=== PATIENT | male | born 1975 | race Caucasian/White ===

== ENCOUNTER → 2017-03-30 | Outpatient (CLI) | payer MEDICARE, OTHER | LOC: RAD 07:50 | DX: S50.01XA Contusion of right elbow, initial encounter (principal) | CPT/HCPCS: 73070 ==

== ENCOUNTER 2017-07-12 13:39 | Emergency (ER) | payer MEDICARE, OTHER ==
[2017-07-12 15:32] LABS: HEMOGLOBIN 14.2 gm/dl (14.0-17.5); RED BLOOD COUNT 4.49 M/UL (4.20-5.50)
[2017-07-12 15:50] LABS: BUN/CREATININE RATIO 13 (0-10)
== END 2017-07-12 17:50 | disposition home or self-care (01) ==
LOC: ER1 13:39
PROVIDERS: Physician Assistant
DX: K42.9 Umbilical hernia without obstruction or gangrene (principal); F17.200 Nicotine dependence, unspecified, uncomplicated
CPT/HCPCS: 36415; 80053; 81001; 82150; 83690; 85025; 96374; 96375; 99284; J2270; J2405; J7050; Q9962

== ENCOUNTER 2020-10-03 22:28 | Emergency (ER) | payer MEDICARE, OTHER ==
[~2020-10-03 22:28] MED LIST: BACTRIM DS TAB1 EACH PO; KEFLEX CAP 500500 MG PO; PREDNISONE 20 M20 MG PO
== END 2020-10-03 23:10 | disposition left against medical advice (07) ==
LOC: ER1 22:28
DX: N48.89 Other specified disorders of penis (principal); Z53.21 Procedure and treatment not carried out due to patient leaving prior to being seen by health care provider
CPT/HCPCS: 99283